=== PATIENT | female | born 1965 | race Caucasian/White ===

== ENCOUNTER 2017-10-02 08:44 | Day surgery (SDC) | payer OTHER ==
[~2017-10-02] VITALS: Ht 162.6 cm; Wt 86.7 kg
[~2017-10-02 08:44] MED LIST: SODIUM CHLORIDE 0.9% 1000ML 1,000 ML IV ONE; VENL75TA63 PO
[2017-10-02 09:12] VITALS: BP 116/65
[2017-10-02] MEDS ORDERED: MEPERIDINE-PF 50 MG/ML SYG ONE (10:27)
[2017-10-02] MEDS ORDERED: MIDAZOLAM HCL 1 MG/ML 2ML VIAL ONE ×2 (10:27→10:48)
[2017-10-02 11:10] VITALS: BP 115/63
== END 2017-10-02 12:30 ==
LOC: ENDO 08:44 → DAH 08:44 → ENDO 12:30
PROVIDERS: ATTEND Internal Medicine Gastroenterology
DX: Z12.11 Encounter for screening for malignant neoplasm of colon (principal); E78.5 Hyperlipidemia, unspecified; F32.9 Major depressive disorder, single episode, unspecified; Z90.49 Acquired absence of other specified parts of digestive tract; Z83.71 Family history of colonic polyps
CPT/HCPCS: 45378; A4606; J2175; J2250 ×2; J7030